=== PATIENT | male | born 1960 | race Caucasian/White ===

== ENCOUNTER 2020-03-13 05:07 | Observation (INO) ==
--- NOTE | 2020-02-29 08:28 | Anesthesiology Consultation ---
Date of Service February 29, 2020 Assessment & Plan (1) Encounter for pre-operative examination: - Preop EKG: preop ekg noted inferior infarct and PRWP. No comparison EKG's available. Awaiting response from PCP ([facility]). - Per assessment on 02/28: Travel screen negative. No known COVID-19 positive contacts or current COVID-19 related symptoms. Patient scheduled for preop protocol COVID-19 testing 03/08 ([place]). Awaiting results. Chart Review Chart Review: Patient seen in Pre Admission Testing Teaching & Discussion Pre-Anesthesia Teaching/Discussion Notes: Instructed NPO after midnight before surgery,except medications with 15 cc of water. Medication instructions provided according to the PAT guidelines. History Surgery Operation Date: 03/13/20 10:50 Proposed Procedures p Right Total Hip Arthroplasty - Jose E Middleton MD Height/Weight Height: 6 ft Weight: 132.7 kg Allergies Allergy/AdvReac Type Severity Reaction Status Date / Time No Known Allergies Allergy Verified 02/28/20 11:52 Medications Home Medications Medication Instructions Recorded Confirmed Last Taken No Known Home Medications 02/28/20 02/28/20 Unknown Past Medical History Medical History Degenerative joint disease of right hip Obesity Osteoarthritis TMJ click Exercise / Class Metabolic Activity II 4-5 Yardwork/Stairs/Walk up hill Past Family History Family History Brother Bile duct cancer Other No family history of adverse response to anesthesia Past Surgical History Surgical History History of colonoscopy History of wisdom tooth extraction Past Anesthesia History No Hx of Anesthesia Complications and No Family Hx of Anesthesia Complications History of PONV No Hx of PONV and Hx of Motion Sickness (rare) Social History Smoking Status: Never smoker Do You Dip or Chew Tobacco: No Hx Alcohol Use: Yes Alcohol type: beer alcohol intake frequency: a few times a month Hx Substance Use: No substance use type: does not use Review of Systems Patient denies chest pain, shortness of breath, dyspnea on exertion, fever, chills, cough, wheezing, palpitations. Physical Exam Vital Signs VITALS BP 154/93 P 78 TEMP 98.8 SP02 93%RA RESP 16 PHYSICAL Full neck and c-spine range of motion. Full TMJ range of motion. TMD 3.5 finger breaths Mallampati Score 2 Dentition: missing molars Lungs: clear throughout to auscultation Cardiac: regular rate and rhythm, no murmurs noted Spine: normal Carotid arteries: negative bruit Extremities: no edema Testing Laboratory Results 02/29/20 08:52 02/29/20 08:52 PT 10.6 Seconds (9.0-12.0) 02/29/20 08:52 INR 1.0 (0.9-1.1) 02/29/20 08:52 APTT 28.5 Seconds (21.0-31.0) 02/29/20 08:52 Blood Type A Positive 02/29/20 08:52 Antibody Screen POSITIVE A 02/29/20 08:52 Laila at blood bank aware of positive antibodies and states that nothing further needed prior to surgery* Electrocardiogram Date: 02/29/20 NSR at 72bpm. LAD. Inferior infarct, age undetermined. PRWP, consider anterior DC vs. lead placement vs. LVH. NS TWA. Chest X-Ray Date: 02/29/20 FINDINGS: The heart is normal in size. There is no failure. There is no focal pulmonary consolidation. There are no pleural effusions. There is a moderate hiatal hernia. There is mild basilar atelectasis. IMPRESSION: Moderate hiatal hernia. No active disease in the chest.
--- NOTE | 2020-02-29 09:21 | XRay Report ---
XR chest Pre-admission PA/Lat CLINICAL HISTORY: Preoperative chest COMPARISON STUDY: No previous studies for comparison. FINDINGS: The heart is normal in size. There is no failure. There is no focal pulmonary consolidation . There are no pleural effusions. There is a moderate hiatal hernia. There is mild basilar atelectasi s.[ IMPRESSION: Moderate hiatal hernia. No active disease in the chest. ACT 112: Negative or not required by law. Electronically signed by: Stanford Barnett M.D. 02/29/2020 9:20 AM
[2020-02-29 10:15] LABS: Basophils # (auto) 0.02 K/uL (0-0.2); Basophils % (auto) 0.4 %; Eosinophils # (auto) 0.28 K/uL (0-0.5); Eosinophils % (auto) 4.9 %; Hematocrit (blood only) 43.6 % (42-52); Hemoglobin 14.3 g/dL (14.0-18.0); Immature Granulocytes # (auto) 0.01 K/uL (0.00-0.02); Immature Granulocytes % (auto) 0.2 %; Lymphocytes # (auto) 1.66 K/uL (1.2-3.4); Lymphocytes % (auto) 29.1 %; Mean Corpuscular Hemoglobin 29.2 pg (25-34); Mean Corpuscular Hgb Conc 32.8 g/dL (32-36); Monocytes # (auto) 0.26 K/uL (0.11-0.59); Monocytes % (auto) 4.6 %; Neutrophils # (auto) 3.48 K/uL (1.4-6.5); Neutrophils % (auto) 60.8 %; Platelet Count 245 K/uL (130-400); RDW Coefficient of Variation 13.7 % (11.5-14.5); White Blood Count 5.71 K/uL (4.8-10.8)
[2020-02-29 10:42] LABS: Partial Thromboplastin Time 28.5 Seconds (21.0-31.0); Prothrombin Time 10.6 Seconds (9.0-12.0)
[2020-02-29 11:22] LABS: BUN Creatinine Ratio 15.8 (10-20); Calcium 9.2 mg/dl (8.5-10.1); Creatinine Clr Calc Pharmacy 107.8 ml/min; Est GFR (African American) 90.7; Est GFR (Non-African American) 78.2; Potassium 4.3 mmol/L (3.5-5.1)
--- NOTE | 2020-02-29 13:27 | Electrocardiogram Report ---
Test Reason : Blood Pressure : / mmHG Vent. Rate : 072 BPM Atrial Rate : 072 BPM P-R Int : 162 ms QRS Dur : 104 ms QT Int : 444 ms P-R-T Axes : 053 -75 057 degrees QTc Int : 486 ms Normal sinus rhythm Left axis deviation Inferior infarct , age undetermined Poor R wave progression, consider anterior MS vs. lead placement vs. LVH Nonspecific T wave abnormality Abnormal ECG No previous ECGs available Confirmed by Phil Yadav ([id number]) on 02/29/2020 1:27:14 PM Referred By: Jose E Middleton Confirmed By:Phil Yadav
[2020-03-11 03:46] LABS: SARS CoV2 RNA (COVID-19) NOT DETECTED (NOT DETECTED)
[2020-03-13] MEDS ORDERED: CEFAZOLIN 3000MG 72.5 ML IV SCH (06:00)
[2020-03-13] MEDS ORDERED: ACETAMINOPHEN 500 MG TAB PO SCH (06:00)
[2020-03-13] MEDS ORDERED: LR 60ML/HR IV SCH (06:00)
[2020-03-13] MEDS ORDERED: METOCLOPRAMIDE HCL 10 MG TABLET PO SCH (06:00)
[2020-03-13] MEDS ORDERED: TRANEXAMIC ACID 1,000 MG **IV Pre-op IV SCH (06:00)
[2020-03-13] MEDS ORDERED: LR 500ML BOLUS, THEN 15ML/HR IV SCH (06:00)
[2020-03-13] MEDS ORDERED: GABAPENTIN 600 MG DOSE PO SCH (06:00)
[2020-03-13] MEDS ORDERED: BUPIVACAINE 0.5 % 5 MG/1 ML PF 10ML VIAL ONE (06:24)
[2020-03-13] MEDS ORDERED: MIDAZOLAM HCL 1 MG/ML 2ML VIAL ONE (06:42)
[2020-03-13] MEDS ORDERED: PROPOFOL IV EMULSION 10 MG/ML 20 ML VIAL IV ONE ×2 (06:42→08:09)
[2020-03-13] MEDS ORDERED: fentaNYL citrate 100 MCG/2 ML VIAL ONE (06:42)
[2020-03-13] MEDS ORDERED: MoRPHine SULFATE PF 1 MG/ML 10 ML AMP/VIAL ONE (06:42)
[2020-03-13] MEDS ORDERED: LIDOCAINE HCL 2% 2 ML VIAL/AMP(20MG/ML) INFIL ONE (06:42)
[2020-03-13] MEDS ORDERED: NALOXONE HCL 0.4 MG/1 ML VIAL/CARP IV PRN ×2 (06:46→09:27)
[2020-03-13] MEDS ORDERED: LACTATED RINGER'S 500 ML IV PRN (06:46)
[2020-03-13] MEDS ORDERED: ONDANSETRON INJ 2 MG/ML 2 ML VIAL IV PRN ×2 (06:46→09:27)
[2020-03-13] MEDS ORDERED: PROMETHAZINE HCL 12.5 MG in SODIUM CHLORIDE 0.9% 50 ML IV PRN (06:46)
[2020-03-13] MEDS ORDERED: MEPERIDINE HCL 25 MG/ML CARP/VIAL IV PRN (06:46)
[2020-03-13] MEDS ORDERED: NALOXONE HCL 0.08 MG in SYRINGE 1.8 ML IV PRN (06:46)
[2020-03-13] MEDS ORDERED: NALOXONE HCL 1 MG in SODIUM CHLORIDE 0.9% 1000ML 1,000 ML IV PRN (06:46)
[2020-03-13] MEDS ORDERED: DiphenhydrAMINE HCL 50 MG/ML VIAL IV PRN (06:46)
[2020-03-13] MEDS ORDERED: MoRPHine SULFATE PF 1 MG/ML 10 ML AMP/VIAL INT SPINAL ONE (06:46)
[2020-03-13] MEDS ORDERED: ePHEDrine sulfate 50 MG/ML AMP IV PRN (06:46)
--- NOTE | 2020-03-13 06:48 | History & Physical Bridge Note ---
Date of Service March 13, 2020 History & Physical Bridge Note I have examined the patient, reviewed the History & Physical and in the interval since the performance of the History & Physical I have noted the following changes of clinical significance: no changes noted
[2020-03-13] MEDS ORDERED: EPINEPHrine INJ 1 MG/ML AMP ONE (06:52)
[2020-03-13] MEDS ORDERED: BUPIVACAINE 0.5 % 5 MG/1 ML MPF 30ML VIAL ONE (06:52)
[2020-03-13] MEDS ORDERED: BACITRACIN INJ 50,000 UNIT VIAL ONE (06:52)
[2020-03-13] MEDS ORDERED: SODIUM CHLORIDE 0.9% 1000ML 1,000 ML IV SCH (07:00)
[2020-03-13] MEDS ORDERED: NO NARCOTICS OR SEDATIVES SCH (07:00)
--- NOTE | 2020-03-13 08:40 | Post Operative Brief Note ---
PG Immediate Post Op with CF Date of Surgery March 13, 2020 Pre & Post Diagnosis Operation Date: 03/13/20 07:00 Pre-Op Diagnosis: Right Hip Degenerative Joint Disease Post-Op Diagnosis: Right Hip Degenerative Joint Disease I identified the patient and participated in the time-out.: Yes Procedure Operation Date: 03/13/20 07:00 Actual Procedures p Right Total Hip Arthroplasty(Right) - Jose E Middleton MD Surgeon Jose E Middleton MD Software Business Analyst Evgeny, PAC Estimated Blood Loss 300 Findings Consistent with Post-Op Diagnosis Fluids 1500 cc Specimens Specimen Description: A. Right Femoral Head Drains Alves Catheter (inserted by Nirmala SHANE prior to procedure start without difficulty. output monitored by anesthesia) Anesthesia Type Spinal MAC Complications none Disposition Accompanied Patient To Recovery: Yes Disposition: Recovery Room
--- NOTE | 2020-03-13 08:52 | Operative Report ---
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 He did have a moderate sized joint effusion with some moderate synovitis. A small anterior acetabular osteophyte. Fairly large medial acetabular osteophyte. Fluids 1500 cc. Specimens Right femoral head sent for pathology. Drains None. Anesthesia Type Spinal MAC Complications none Disposition Accompanied Patient To Recovery: Yes Disposition: Recovery Room Indications Patient is a 59-year-old fairly large gentleman is had a several year history of a right hip pain discomfort that is gradually gotten significant worse over the past 6 to 9months. Got to the point where he is having trouble getting around the. X-rays show advanced hip arthritis. He elected proceed with surgical treatment. He failed conservative modalities. Description of Procedure Operative implants consist of: 1. Biomet G7 size 56 mm acetabular shell. 2. 6.5 cancellus acetabular screws 1 of 35 mm length 1 to 20 mm length. 3. An apex hole eliminator. 4. Highly cross-linked polyethylene liner with a 56 mm outer diameter, 36 mm time with a torres placed inferior and posterior. 5. Jade Corail size 10 KLA femoral stem. 6. +8.5/36 mm ceramic articular ball. The patient was taken to the operating room identified and placed on the operating table supine position protectors were properly padded. IV antibiotics arrived by anesthesia team. A spinal anesthetic had been implemented in the holding area. A Laves catheter was placed in sterile fashion. The patient was then placed in the left lateral decubitus position. An axillary roll was placed. A Stulberg hip positioner was used for positioning. The right hip and leg were then prepped and draped in usual sterile fashion. A posterior lateral approach to the right hip was then performed to a curvilinear incision centered over the greater trochanter. Sharp dissection Through subcutaneous tissue down to level the IT band gluteal fascia the IT band gluteal fascia then incised longitudinally in line with skin incision. The underlying greater bursa was excised. The piriformis and external rotators were tagged and taken off the posterior aspect hip joint capsule. Great care was taken throughout the procedure protect sciatic nerve at all times. A posterior capsulotomy was then performed leaving a large flap for later repair. Hip was internally rotated and dislocated. A femoral neck osteotomy cut was made with the Final Cut about 10 mm above the lesser trochanter. The femur was retracted anteriorly. Attention drawn the acetabulum. The acetabular labrum was excised. The pulmonary fat was excised. Sequential reaming the acetabular was then performed again with size 45 and progressing up to 55. I did reamed a little bit with a 56. A 56 mm Biomet G7 acetabular shell was then placed in about 40 degrees lateral opening and 20 degrees of anteversion. It was fixed with two 6.5 cancellus acetabular screws. A small anterior osteophyte was removed. Trial liner was placed. Attention drawn the femur. The proximal femur was entered with a cookie-cutter followed by canal finder. I then broached begin the size 8 and progressing up to 10. That we got fairly good fit with a 10 in his cancellus bone structure was a very strong. His distal dimensions of the canal were fairly narrow so we stopped here. That we got good rotational control. Calcar reamer was used smooth and off the calcar. I then trialed the hip and the +8.5 seem to re-create soft tissue tension appropriately, but was fully stable in full extension and external rotation and flexion to 90 degrees internal rotation over 50 degrees. Leg lengths seemed equal. I did elect to place a torres inferior and posterior to maximize his stability in flexion. We elect to place these implants. Attention drawn toward closing. Nupathe wounds irrigated copious pulsatile lavage solution. I did inject locally with 60 cc of half percent Marcaine with epinephrine. The posterior capsule and external rotators were then repaired through drill holes in the posterior trochanter with #2 Tycron suture. The IT band gluteal fascia then closed in 1 PDS suture running fashion the subcutaneous tissue then closed with 2 layers the deep layer #1 Vicryl suture and the subcutaneous tissues with 2-0 Dexon suture in a buried interrupted fashion. Skin was closed skin babita. Leg was then cleaned dried and sterile dressed composed Xeroform, 4 x 4's, sterile ABD pad and foam tape was applied. The p atient then transferred to the recovery room in stable condition. The patient tolerated procedure well and there were no complications. Randy Pepper, my physician bookkeeping assistant, was present for the entire procedure. His assistance was essential and required for appropriate patient positioning part, prepping and draping, surgical exposure, performing the technical details the operation, placement the implants, closure of the wound, and placement of the sterile bandage. I attest to the content of the Intraoperative Record and any orders documented therein. Any exceptions are noted below.
--- NOTE | 2020-03-13 09:04 | XRay Report ---
AP PELVIS, CROSSTABLE LATERAL RIGHT HIP History: Right total hip arthroplasty. Degenerative arthritis. Postop. FINDINGS: The patient is status post a right total hip arthroplasty. The hardware is intact. No fract ure or dislocation. Skin babita are in place. IMPRESSION: Right total hip arthroplasty. No evidence for hardware complication ACT 112: Negative or not required by law. Electronically signed by: Eladio Nunez M.D. 03/13/2020 9:02 AM
[2020-03-13] MEDS ORDERED: MAGNESIUM HYDROXIDE SUSP 30 ML UDC PO PRN (09:27)
[2020-03-13] MEDS ORDERED: HYDROmorphone INJ 0.5 MG/0.5 ML SYR IV PRN (09:27)
[2020-03-13] MEDS ORDERED: TAMSULOSIN HCL 0.4 MG CAP PO PRN (09:27)
[2020-03-13] MEDS ORDERED: ALUMINUM/MAGNESIUM SUSP 30 ML UDC PO PRN (09:27)
[2020-03-13] MEDS ORDERED: TRAMADOL HCL 50 MG TABLET PO PRN (09:27)
[2020-03-13] MEDS ORDERED: METOCLOPRAMIDE HCL INJ 5 MG/ML 2 ML VIAL IV PRN (09:27)
[2020-03-13] MEDS ORDERED: bisacodyL 10 MG SUPP PR PRN (09:27)
[2020-03-13] MEDS ORDERED: PHENYLEPHRINE 100MCG/ML 5ML SYR ONE (09:51)
[2020-03-13] MEDS: SODIUM CHLORIDE 0.9% 1000ML 1,000 ML IV SCH ×3 (10:11→23:31)
--- NOTE | 2020-03-13 10:30 | Anesthesiology Progress Note ---
Date of Service March 13, 2020 Anesthesia Post Procedure Vital Signs Vital Signs: Temp Pulse Pulse Pulse Resp BP Pulse Ox 03/13/20 10:23 65 16 127/88 94 03/13/20 09:48 62 16 115/80 95 03/13/20 09:20 36.5 C 71 16 151/85 H 94 03/13/20 09:10 36.3 C L 64 16 168/87 H 97 03/13/20 09:00 67 16 139/80 98 03/13/20 08:50 70 16 133/73 97 03/13/20 08:41 36.0 C L 79 18 125/69 94 03/13/20 05:23 36.8 C 81 18 124/93 94 Transfer of Care Handoff Completed per policy Notes Mental Status: alert / awake / arousable Patient Amnestic to Procedure: Yes Nausea / Vomiting: adequately controlled Pain: adequately controlled Airway Patency, RR, SpO2: stable & adequate BP & HR: stable & adequate Hydration State: stable & adequate Neuraxial Anesthesia: was administered and sensory block is resolving Anesthetic Complications: no major complications apparent
[2020-03-13] MEDS: ASPIRIN 81 MG ECTAB PO SCH ×2 (11:10→21:30)
[2020-03-13] MEDS: MULTIVITAMIN TAB PO SCH (11:10)
[2020-03-13] MEDS: KETOROLAC 30 MG/ML VIAL IV SCH ×3 (11:10→23:31)
[2020-03-13] MEDS: DOCUSATE SODIUM 100 MG CAP PO SCH ×2 (11:10→21:30)
[2020-03-13] MEDS: ACETAMINOPHEN 500 MG TAB PO SCH ×2 (13:23→21:30)
[2020-03-13] MEDS: CEFAZOLIN 2000MG 2,000 MG/15 ML SYR IV SCH ×2 (14:02→22:16)
--- NOTE | 2020-03-13 14:08 | Progress Notes ---
DATE: 03/13/2020 SUBJECTIVE: A 59-year-old gentleman postop from a right hip replacement. He is doing well. He really not had any pain yet. No chest pain or shortness of breath. Not feeling dizzy or lightheaded. OBJECTIVE: VITAL SIGNS: Temperature 36.5. Vital signs stable. GENERAL: Shows a pleasant, middle-aged male. He is sitting up in bed and looks quite comfortable. He is talking to his . LUNGS: Clear to auscultation. HEART: Regular rate and rhythm. ABDOMEN: Soft, nontender, nondistended. EXTREMITIES: Grossly neurovascularly intact except as follows: Examination of the right leg reveals his leg lengths to be equal. Hip is located. Dressing is clean, dry and intact. Thigh is soft and supple. He can dorsiflex and plantarflex his foot appropriately. He is neurologically intact. X-RAYS: X-rays of the right hip from recovery room were reviewed. He has a right uncemented total hip arthroplasty. Components looked to be in good position. No signs of problems. ASSESSMENT: A 59-year-old gentleman postoperative from a right hip replacement, doing well. His pain is controlled. Hip is located. He is neurologically intact. PLAN: 1. DVT prophylaxis including thigh-high TEDs, SCDs, and aspirin twice a day. 2. PT/OT. Weight bear as tolerated. Right total hip protocol. 3. Pain control, doing well with current pain regimen. 4. IV antibiotics x24 hours. 5. Disposition: Plan to discharge to home with some home health once adequately recovered and medically stable.
[2020-03-13] MEDS ORDERED: TRANEXAMIC ACID / 0.7% NACL 1,000 MG/100 ML BAG IV SCH (14:45)
[2020-03-13] MEDS: Scopolamine CHECK PATCH PLACEMENT SCH ×2 (16:20→23:31)
[2020-03-13] MEDS: ASCORBIC ACID 500 MG TAB PO SCH (16:56)
[2020-03-13] MEDS ORDERED: SENNA 8.6 MG TAB PO SCH (21:00)
[2020-03-14] MEDS ORDERED: DC INTRASPINAL MORPHINE ONE (00:46)
[2020-03-14] MEDS: ACETAMINOPHEN 500 MG TAB PO SCH (05:19)
[2020-03-14] MEDS: KETOROLAC 30 MG/ML VIAL IV SCH ×2 (05:19→11:48)
[2020-03-14] MEDS: SODIUM CHLORIDE 0.9% 1000ML 1,000 ML IV SCH (05:47)
[2020-03-14 06:06] LABS: Basophils # (auto) 0.01 K/uL (0-0.2); Basophils % (auto) 0.1 %; Eosinophils # (auto) 0.18 K/uL (0-0.5); Eosinophils % (auto) 1.8 %; Hematocrit (blood only) 39.9 % (42-52); Hemoglobin 12.9 g/dL (14.0-18.0); Lymphocytes # (auto) 1.41 K/uL (1.2-3.4); Lymphocytes % (auto) 14.1 %; Mean Corpuscular Hemoglobin 29.3 pg (25-34); Mean Corpuscular Hgb Conc 32.3 g/dL (32-36); Mean Corpuscular Volume 90.5 fL (80-100); Mean Platelet Volume 10.8 fL (7.4-10.4); Monocytes # (auto) 0.75 K/uL (0.11-0.59); Monocytes % (auto) 7.5 %; Neutrophils # (auto) 7.65 K/uL (1.4-6.5); Neutrophils % (auto) 76.5 %; Platelet Count 217 K/uL (130-400); RDW Coefficient of Variation 13.9 % (11.5-14.5); Red Blood Count 4.41 M/uL (4.7-6.1)
[2020-03-14 06:43] LABS: BUN Creatinine Ratio 17.4 (10-20); Calcium 8.3 mg/dl (8.5-10.1); Creatinine Clr Calc Pharmacy 106.9 ml/min; Est GFR (African American) 91.7; Est GFR (Non-African American) 79.1; Potassium 3.9 mmol/L (3.5-5.1)
[2020-03-14] MEDS: Scopolamine CHECK PATCH PLACEMENT SCH (07:16)
[2020-03-14 07:33] VITALS: PULSE 65; TEMP 98.4; O2SAT 97
[2020-03-14] MEDS: ASPIRIN 81 MG ECTAB PO SCH (08:34)
[2020-03-14] MEDS: ASCORBIC ACID 500 MG TAB PO SCH (08:34)
[2020-03-14] MEDS: DOCUSATE SODIUM 100 MG CAP PO SCH (08:34)
[2020-03-14] MEDS: MULTIVITAMIN TAB PO SCH (08:34)
[2020-03-14 08:59] VITALS: BP 124/80
--- NOTE | 2020-03-14 09:15 | Progress Notes ---
DATE: 03/14/2020 SUBJECTIVE: A 59-year-old gentleman postop day 1 from right hip replacement. He is doing well. Still does not have much in the way of pain. No chest pain or shortness of breath. Not feeling dizzy or lightheaded. OBJECTIVE: VITAL SIGNS: Temperature 36.9. Vital signs stable. GENERAL: Shows a fairly large middle-aged male. He is sitting up in his bedside chair, looks comfortable this morning. EXTREMITIES: Examination of the right hip reveals the dressing to be clean, dry and intact. Leg lengths are equal. Hip is located. He is neurologically intact. Thigh is soft and supple. LABORATORY DATA: Hemoglobin 12.9. Hematocrit 39.9. Electrolytes are stable. ASSESSMENT: A 59-year-old gentleman postop day 1 from right hip replacement, doing quite well. His pain is controlled. Hip is located. He is neurologically intact. PLAN: 1. DVT prophylaxis including thigh-high TEDs, SCDs, and aspirin twice a day. 2. PT/OT. Weight bear as tolerated. Right total hip protocol. 3. Pain control, doing well with current pain regimen. 4. Disposition: Plan to discharge to home with some home health likely later today if doing okay.
--- NOTE | 2020-03-19 16:03 | Discharge Summary ---
Date of Service March 19, 2020 Admission HPI Per Admitting Provider Documented in the H & P Admission Exam (Per Admitting) Constitutional Documented in the H & P Discharge Data Consultations 03/14/20 08:00 Consult Case Management - Discharge Planning Routine Procedures Performed Operation Date: 03/13/20 07:00 Actual Procedures p Right Total Hip Arthroplasty(Right) - Jose E Middleton MD Hospital Course (1) Status post total hip replacement, right: This patient is a 59 year old male admitted on 03/13/20 and underwent total hip arthroplasty. She tolerated the procedure well and there were no complications. Transferred to the PACU post op and later to the orthopedic floor for further care. He was given ancef for antibiotic prophylaxis. He was also given JOSSELINE stockings, SCDs, and aspirin for DVT prophylaxis. Hemoglobin, hematocrit, and vital signs were monitored during his hospital stay and remained stable. Did not require any blood transfusions. There were no complications during his hospital stay. By post op day #1 the patient was tolerating a regular diet, pain was reasonably controlled with oral pain medicine, and he was participating in physical therapy. On post op day #1 the patient was discharged home and set up with home health care. He was given printed discharge instructions including prescriptions for extra strength tylenol, aspirin, and tramadol. Continue physical therapy, weight bearing as tolerated. Continue JOSSELINE stockings. Total hip precautions. Follow up approximately 2 weeks post op or sooner if there are problems or concerns. Coding Level of Care Code None Diagnoses Status post total hip replacement, right Z96.641
== END 2020-03-14 12:57 | disposition home health service (06) ==
LOC: 3E 05:07 → ASU 05:07
DX: M65.9 Synovitis and tenosynovitis, unspecified; M16.11 Unilateral primary osteoarthritis, right hip